=== PATIENT | male | born 1995 | race Caucasian/White ===

== ENCOUNTER 2018-07-23 16:30 | Emergency (ER) | END 2018-07-23 17:30 | disposition home or self-care (01) ==

== ENCOUNTER 2018-11-12 18:00 | Emergency (ER) | payer SELFPAY ==
[~2018-11-12] VITALS: Ht 170.2 cm; Wt 108.8 kg
[~2018-11-12 18:00] MED LIST: ASPI1TAB31 PO; MECL-77 PO; ONDA4TAB14 PO
[2018-11-12 18:18] VITALS: Ht 170.2 cm; Wt 108.8 kg
[2018-11-12] MEDS ORDERED: LIDOCAINE 1% (MDV) 20 ML INJ SC ONE (19:30)
[2018-11-12] MEDS ORDERED: ACETAMINOPHEN 325 MG TAB PO ONE (19:30)
[2018-11-12] MEDS ORDERED: NEOM28OI2 TP (19:36)
[2018-11-12] MEDS ORDERED: IBUP-1542 PO (19:36)
--- NOTE | 2018-11-12 19:38 | ERD ---
ER Documentation Chief Complaint Chief Complaint POSSIBLE R-BIG TOE INGROWN NAIL X 2 MONTHS HPI 23-year-old male presents with pain swelling redness near the nail in his right big toe. Denies any history of trauma. Has had symptoms for 2 months. He has had treatment for ingrown toenail once remotely. ROS All systems reviewed and are negative except as per history of present illness. Medications Home Meds Active Scripts Neomycin Kaufman/Bacitrac Zn/Poly (Triple Antibiotic Ointment) 28 Gm Oint...g., 28 GM TP TID for 7 Days Prov:BRIAN MCNAIR MD 11/12/18 Ibuprofen* (Motrin*) 600 Mg Tab, 600 MG PO Q6, #15 TAB Prov:BRIAN MCNAIR MD 11/12/18 Meclizine Hcl* (Meclizine Hcl*) 25 Mg Tablet, 25 MG PO Q8H PRN for DIZZINESS, #20 TAB Prov:NILDA CARR PA-C 07/23/18 Ondansetron (Ondansetron Odt) 4 Mg Tab.rapdis, 4 MG PO Q6H PRN for NAUSEA AND/OR VOMITING, #15 TAB Prov:NILDA CARR PA-C 07/23/18 Aspirin/Acetaminophen/Caffeine (Excedrin Migraine Caplet) 1 Each Tablet, 1 EACH PO Q6, #30 TAB Prov:NILDA CARR PA-C 07/23/18 Allergies Allergies: Coded Allergies: No Known Allergy (Unverified , 07/23/18) PMhx/Soc Medical and Surgical Hx: pt denies Medical Hx, pt denies Surgical Hx Hx Alcohol Use: Yes Hx Substance Use: No Hx Tobacco Use: Yes Smoking Status: Current every day smoker FmHx Family History: No diabetes, No coronary disease, No other Physical Exam Vitals Vital Signs Date Temp Pulse Resp B/P (MAP) Pulse Ox O2 O2 Flow FiO2 Time Delivery Rate 11/12/18 98.2 79 14 143/87 99 18:18 (105) Physical Exam Const: No acute distress Head: Atraumatic Eyes: Normal Conjunctiva ENT: Normal External Ears, Nose and Mouth. Neck: Full range of motion. No meningismus. Resp: Clear to auscultation bilaterally Cardio: Regular rate and rhythm, no murmurs Abd: Soft, non tender, non distended. Normal bowel sounds Skin: No petechiae or rashes Back: No midline or flank tenderness Ext: No cyanosis, or edema. Right big toe shows ingrown toenail with some overlapping skin. Some surrounding redness without streaking, purulent discharge, deformities or bony tenderness. Neur: Awake and alert Psych: Normal Mood and Affect Results 24 hrs Current Medications Medications Dose Sig/Marcos Start Time Status Last (Trade) Ordered Route PRN Stop Time Admin Dose Reason Admin 650 mg ONCE ONCE 11/12/18 DC 11/12/18 Acetaminophen PO 19:30 11/12/18 19:32 (Tylenol 19:31 Tab) Lidocaine 20 ml ONCE ONCE 11/12/18 DC (Xylocaine SC 19:30 11/12/18 1% (Mdv) 20 19:31 ml) Procedures/MDM Patient presents with signs and symptoms of a chronic irritated ingrown toenail in the right big toe without signs of necrotizing fasciitis, signs or symptoms to suggest osteomyelitis, foreign body, fracture, dislocation. Was given Tylenol for pain. Procedure note-right big toe was prepped with Betadine. 4 cc lidocaine was used for local infiltration and digital block. Anesthesia was obtained. Using clamps and scissors the ingrown portion of nail was removed. Wound bed was debrided as well as overlapping skin. Wound was dressed and patient tolerated procedure well. Patient will be discharged home with instructions for wound care, return precautions for worsening redness, fevers, new or worsening symptoms of infection. Departure Diagnosis: Primary Impression: Ingrown nail Condition: Stable Patient Instructions: Ingrown Toenail, Excised Additional Instructions: dagmar vieira fiebre. BRIAN MCNAIR MD Nov 12, 2018 19:38
[2018-11-12 20:08] VITALS: BP 131/79; PULSE 71; RESP 18
== END 2018-11-12 20:21 | disposition home or self-care (01) ==
LOC: FTE 18:00
DX: L60.0 Ingrowing nail (principal); F17.210 Nicotine dependence, cigarettes, uncomplicated